=== PATIENT | female | born 1980 | race Caucasian/White ===

== ENCOUNTER → 2017-06-28 | Outpatient (CLI) | payer BC ==
[~2017-06-28] MED LIST: AMIT25 PO; CITA20 PO; ESOM20 PO; Esgic Tablet1 EACH PO; Norco 5-325 Ta1 EACH PO; SUCR1 PO; Zofran Odt4 MG SL
[2017-06-28 09:41] LABS: Specimen Source CERVIX; Test Name VIRCUL
[2017-06-28 10:57] LABS: Candida species (DNA Probe) Positive (NEGATIVE); G. vaginalis (DNA Probe) Negative (NEGATIVE); T. vaginalis (DNA Probe) Negative (NEGATIVE)
[2017-06-29 00:16] LABS: Source Cervix
[2017-06-29 18:18] LABS: HCV Non Reactive (NR)
== END ==
LOC: LAB 09:32
PROVIDERS: Physician Assistant
DX: N72 Inflammatory disease of cervix uteri (principal); N76.0 Acute vaginitis
CPT/HCPCS: 80074; 86592; 87252; 87254; 87389; 87480; 87491; 87510; 87591; 87660

== ENCOUNTER → 2017-07-16 | Outpatient (CLI) | payer BC ==
[2017-07-18 14:10] LABS: HPV Genotype 16 Not Detected (NOTDET); HPV Genotype 18 Not Detected (NOTDET)
[2017-07-24 13:34] LABS: HPV High Risk Other Detected (NOTDET)
== END | disposition home or self-care (01) ==
LOC: LAB SHORT 10:34 → LAB 10:34
PROVIDERS: Obstetrics & Gynecology
DX: Z01.419 Encounter for gynecological examination (general) (routine) without abnormal findings (principal)
CPT/HCPCS: 87624; G0123

== ENCOUNTER → 2017-09-01 | Outpatient (CLI) | payer BC | LOC: PLD 10:52 → LAB SHORT 10:52 | DX: R87.612 Low grade squamous intraepithelial lesion on cytologic smear of cervix (LGSIL) (principal); R87.810 Cervical high risk human papillomavirus (HPV) DNA test positive | CPT/HCPCS: 88305 ==

== ENCOUNTER → 2018-07-29 | Outpatient (CLI) | payer BC ==
[2018-08-04 09:11] LABS: CHLAMYDIA BY NAA Negative (Negative); GONOCOCCUS BY NAA Negative (Negative); HPV 16 Positive (Negative); HPV 18 Positive (Negative); HPV OTHER HR TYPES Positive (Negative); TRICH VAG BY NAA Negative (Negative)
== END | disposition home or self-care (01) ==
LOC: LAB SHORT 14:32 → LAB 14:32
PROVIDERS: Obstetrics & Gynecology
DX: Z01.419 Encounter for gynecological examination (general) (routine) without abnormal findings (principal); Z11.3 Encounter for screening for infections with a predominantly sexual mode of transmission; R87.810 Cervical high risk human papillomavirus (HPV) DNA test positive; R87.612 Low grade squamous intraepithelial lesion on cytologic smear of cervix (LGSIL)
CPT/HCPCS: 87491; 87591; 87624; 87625; 87661; G0123

== ENCOUNTER 2018-08-30 08:01 | Day surgery (SDC) | payer BC ==
[~2018-08-30] VITALS: Ht 162.6 cm; Wt 54.8 kg
--- NOTE | 2018-08-30 17:57 | NUR ---
SHIFT SUMMARY PT AMBULATED TWICE THIS SHIFT AFTER TRANSFER TO FLOOR. MEDICATED PER ORDERS FOR PAIN AND NAUSEA. MULTIPLE VISITORS TO ROOM. SCANT AMOUNT OF DRAINAGE TO MICHELINE PAD. PT PLACED NEW PAD PRIOR TO AMBULATION THIS EVENING. PLEASANT AND COOPERATIVE. CALL LIGHT WITHIN REACH
[2018-08-31 04:53] LABS: BASOPHILS ABSOLUTE AUTO 0.03 K/mm3 (0.00-0.23); BASOPHILS PERCENT AUTO 0 % (0-2); EOSINOPHILS ABSOLUTE AUTO 0.02 K/mm3 (0.00-0.68); EOSINOPHILS PERCENT AUTO 0 % (0-6); Hematocrit 32.2 % (33.0-51.0); Hemoglobin 11.2 g/dL (11.5-16.0); IMMATURE GRAN ABSOLUTE AUTO 0.03 K/mm3 (0.00-0.10); IMMATURE GRAN PERCENT AUTO 0 % (0-1); LYMPHOCYTES ABSOLUTE AUTO 1.89 K/mm3 (0.84-5.20); LYMPHOCYTES PERCENT AUTO 20 % (21-46); MONOCYTES ABSOLUTE AUTO 0.61 K/mm3 (0.16-1.47); MONOCYTES PERCENT AUTO 7 % (4-13); Mean Corpuscular HGB 32.4 pg (26.0-34.0); Mean Corpuscular HGB Conc 34.8 g/dL (31.5-36.5); Mean Corpuscular Volume 93 fL (80-100); Mean Platelet Volume 10.2 fL (9.1-12.4); NEUTROPHILS PERCENT AUTO 73 % (41-73); Platelet Count 164 K/mm3 (150-400); RDW Coefficient Variation 11.9 % (11.7-14.2); RDW Standard Deviation 40.6 fL (35.1-46.3); Red Blood Cell Count 3.46 M/mm3 (3.80-5.20); White Blood Cell Count 9.38 K/mm3 (4.00-11.30)
--- NOTE | 2018-08-31 04:58 | NUR ---
SHIFT SUMMARY PT IS POD 1 FOLLOWING LAPAROSCOPIC ASSISTED VAGINAL HYSTERECTOMY. PT IS INDEPENDENT IN ROOM, AMBULATED IN [place]ICOLE TWICE THIS SHIFT. VSS, 02 SATS >90% ON ROOM AIR. PT DID NOT REPORT NAUSEA THIS SHIFT, MEDICATED FOR PAIN PER ORDERS. MAHAN CATHETER REMOVAL AT 0440 PER ORDERS, PT TOLERATED WELL. WILL CONTINUE TO MONITOR FOR ABILITY TO VOID INDEPENDENTLY. SCANT AMOUNT OF BLEEDING NOTED ON MICHELINE PAD, NEW PAD PLACED BY PT.
[2018-08-31] MEDS ORDERED: Acetaminophen650 M1 PO (09:23)
[2018-08-31] MEDS ORDERED: IBUP800 PO (09:24)
[2018-08-31] MEDS ORDERED: DOCU100 PO (09:24)
[2018-08-31] MEDS ORDERED: ONDA4ODT PO (09:26)
[2018-08-31] MEDS ORDERED: OXYC5 PO (09:30)
--- NOTE | 2018-08-31 12:15 | NUR ---
DISCHARGED REVIEWED DC PAPERWORK; PT VERBALIZED UNDERSTANDING. DC'D IV, CATHETER INTACT. CALLED PRESCRIPTION FOR ZOFRAN AND IBUPROFEN TO [facility] ON [address] PER PT REQUEST. OXYCODONE PRESCRIPTION IN DISCHARGE FOLDER. PT AWAITING RIDE.
--- NOTE | 2018-08-31 12:24 | NUR ---
PT LEFT UNIT BY AMBULATION ACCOMPANIED BY MOTHER. MOTHER HAS POSSESSIONS AND DC PAPERWORK IN HAND.
== END 2018-08-31 12:20 | disposition home or self-care (01) ==
LOC: ORSCMMR 08:01 → ORD 10:00 → SURS 12:42 → ORSCMMR 08-31 12:20
PROVIDERS: Obstetrics & Gynecology
PROC: 0UT7FZZ Resection of Bilateral Fallopian Tubes, Via Natural or Artificial Opening With Percutaneous Endoscopic Assistance (ICD-10-PCS; principal; 2018-08-31)
PROC: 0UT9FZZ Resection of Uterus, Via Natural or Artificial Opening With Percutaneous Endoscopic Assistance (ICD-10-PCS; principal; 2018-08-31)
DX: R87.810 Cervical high risk human papillomavirus (HPV) DNA test positive (principal); R87.612 Low grade squamous intraepithelial lesion on cytologic smear of cervix (LGSIL); N93.0 Postcoital and contact bleeding; N92.0 Excessive and frequent menstruation with regular cycle
CPT/HCPCS: 36415; 84703; 85025; 88307; J0690; J1100; J1885; J2250; J2405; J2704; J2710; J2765; J3010; J7120; Q0163

== ENCOUNTER 2018-09-28 11:03 | Day surgery (SDC) | payer BC ==
[~2018-09-28] VITALS: Ht 162.6 cm; Wt 54.9 kg
[~2018-09-28 11:03] MED LIST changes: +Acetaminophen650 M1 PO; +DOCU100 PO; +IBUP800 PO; +ONDA4ODT PO; +OXYC5 PO
== END 2018-09-28 13:15 | disposition home or self-care (01) ==
LOC: ORSCSDS 11:03
PROVIDERS: Surgery
PROC: 0DB48ZX Excision of Esophagogastric Junction, Via Natural or Artificial Opening Endoscopic, Diagnostic (ICD-10-PCS; principal; 2018-09-28 12:30)
PROC: 0DB68ZX Excision of Stomach, Via Natural or Artificial Opening Endoscopic, Diagnostic (ICD-10-PCS; principal; 2018-09-28 12:30)
DX: K22.70 Barrett's esophagus without dysplasia (principal); K21.9 Gastro-esophageal reflux disease without esophagitis; E78.00 Pure hypercholesterolemia, unspecified; F41.9 Anxiety disorder, unspecified
CPT/HCPCS: 88305; 88342; J0330; J0461; J2405; J2704; J7120

== ENCOUNTER → 2019-02-17 | Outpatient (CLI) | payer BC | END | disposition home or self-care (01) | LOC: PLD 10:41 → LAB SHORT 10:41 | DX: D22.5 Melanocytic nevi of trunk (principal); L98.9 Disorder of the skin and subcutaneous tissue, unspecified | CPT/HCPCS: 88305 ==

== ENCOUNTER → 2019-11-16 | Outpatient (CLI) | payer BC ==
[~2019-11-16] MED LIST changes: +OMEP20ER; +OXYCODONE-ACET1 EAC3 PO
[2019-11-18 16:08] LABS: HPV 16 Positive (Negative); HPV 18 Positive (Negative); HPV OTHER HR TYPES Negative (Negative)
== END | disposition home or self-care (01) ==
LOC: LAB 15:20 → LAB SHORT 15:20
PROVIDERS: Obstetrics & Gynecology
DX: Z01.419 Encounter for gynecological examination (general) (routine) without abnormal findings (principal)
CPT/HCPCS: 87624; 87625; G0123

== ENCOUNTER 2019-12-01 06:24 | Day surgery (SDC) | payer BC ==
[~2019-12-01] VITALS: Ht 162.6 cm; Wt 57.7 kg
[~2019-12-01 06:24] MED LIST changes: -OMEP20ER; -OXYCODONE-ACET1 EAC3 PO
[2019-12-01] MEDS ORDERED: OMEP20ER (06:49)
--- NOTE | 2019-12-01 09:40 | NUR ---
12/01/19 0940 Aida Ramirez NAUSEA RESOLVED AND PAIN NOW 4/10. DISCHARGE INSTRUCTIONS GIVEN. SAYS READY TO GO HOME TO SLEEP. IV DC'D AND DC HOME WITH MOM AND ALL BELONGINGS.
[2019-12-09] MEDS ORDERED: OXYCODONE-ACET1 EAC3 PO (07:44)
== END 2019-12-01 09:26 | disposition home or self-care (01) ==
LOC: ORSCSDS 06:24
PROVIDERS: Otolaryngology
PROC: 0CTPXZZ Resection of Tonsils, External Approach (ICD-10-PCS; principal; 2019-12-01 07:30)
DX: J35.01 Chronic tonsillitis (principal); J35.8 Other chronic diseases of tonsils and adenoids; K22.70 Barrett's esophagus without dysplasia; Z79.899 Other long term (current) drug therapy
CPT/HCPCS: 88304; J0330; J1100; J2250; J2405; J2704; J2765; J3010; J7120

== ENCOUNTER 2020-09-18 13:27 | Day surgery (SDC) | payer BC ==
[~2020-09-18] VITALS: Ht 162.6 cm; Wt 57.9 kg
[~2020-09-18 13:27] MED LIST changes: +OMEP20ER; +OXYCODONE-ACET1 EAC3 PO
== END 2020-09-18 16:06 | disposition home or self-care (01) ==
LOC: ORSCSDS 13:27
PROVIDERS: Surgery
PROC: 0DB48ZX Excision of Esophagogastric Junction, Via Natural or Artificial Opening Endoscopic, Diagnostic (ICD-10-PCS; principal; 2020-09-18 14:45)
PROC: 0DB68ZX Excision of Stomach, Via Natural or Artificial Opening Endoscopic, Diagnostic (ICD-10-PCS; principal; 2020-09-18 14:45)
DX: K22.70 Barrett's esophagus without dysplasia (principal); K21.9 Gastro-esophageal reflux disease without esophagitis; I47.1 Supraventricular tachycardia; K29.70 Gastritis, unspecified, without bleeding; Z79.899 Other long term (current) drug therapy
CPT/HCPCS: 88305; 88342; J2704; J7120

== ENCOUNTER → 2021-10-01 | Outpatient (CLI) | payer BC | END | disposition home or self-care (01) | LOC: PLD 11:09 → LAB SHORT 11:09 | DX: D22.72 Melanocytic nevi of left lower limb, including hip (principal); D22.5 Melanocytic nevi of trunk | CPT/HCPCS: 88305 ==

== ENCOUNTER 2022-08-18 06:52 | Emergency (ER) | payer BC ==
[~2022-08-18] VITALS: Ht 162.6 cm; Wt 56.7 kg
[2022-08-18] MEDS ORDERED: Amitriptyline H10 MG PO (07:21)
[2022-08-18] MEDS ORDERED: RIZATRIPTAN5 MG PO (07:21)
[2022-08-18 08:20] LABS: BASOPHILS ABSOLUTE AUTO 0.05 K/mm3 (0.00-0.23); BASOPHILS PERCENT AUTO 1 % (0-2); EOSINOPHILS ABSOLUTE AUTO 0.04 K/mm3 (0.00-0.68); EOSINOPHILS PERCENT AUTO 1 % (0-6); Hematocrit 40.8 % (33.0-51.0); Hemoglobin 14.5 g/dL (11.5-16.0); IMMATURE GRAN ABSOLUTE AUTO 0.01 K/mm3 (0.00-0.10); IMMATURE GRAN PERCENT AUTO 0 % (0-1); LYMPHOCYTES ABSOLUTE AUTO 1.36 K/mm3 (0.84-5.20); LYMPHOCYTES PERCENT AUTO 28 % (21-46); MONOCYTES ABSOLUTE AUTO 0.32 K/mm3 (0.16-1.47); MONOCYTES PERCENT AUTO 7 % (4-13); Mean Corpuscular HGB 31.5 pg (26.0-34.0); Mean Corpuscular HGB Conc 35.5 g/dL (31.5-36.5); Mean Corpuscular Volume 89 fL (80-100); Mean Platelet Volume 9.6 fL (9.1-12.4); NEUTROPHILS ABSOLUTE AUTO 3.06 K/mm3 (1.96-9.15); NEUTROPHILS PERCENT AUTO 63 % (41-73); Platelet Count 231 K/mm3 (150-400); RDW Coefficient Variation 11.4 % (11.7-14.2); RDW Standard Deviation 36.9 fL (35.1-46.3); Red Blood Cell Count 4.61 M/mm3 (3.80-5.20); White Blood Cell Count 4.84 K/mm3 (4.00-11.30)
[2022-08-18 08:26] LABS: Appearance, Urine Clear (Clear); Bilirubin, Urine Neg (Neg); Blood, Urine Neg (Neg); Color, Urine Yellow (P-Yellow); Glucose Qualitative, Urine Neg (Neg); Ketones, Urine Neg (Neg); Leukocyte Esterase, Urine Neg (Neg); Nitrite, Urine Neg (Neg); Protein, Urine Neg (Neg); Source, Urine Clean Catch; Specific Gravity, Urine 1.015 (1.003-1.022); Urobilinogen, Urine NORM (Normal); pH, Urine 6.5 (5.0-8.0)
[2022-08-18 08:38] LABS: Albumin, Blood 4.4 g/dL (3.4-5.0); Albumin/Globulin Ratio 1.2 (0.8-1.8); Bilirubin, Total 0.5 mg/dL (0.1-1.0); Bun/Creatinine Ratio 17.5 (12.0-20.0); Calcium, Blood 9.5 mg/dL (8.5-10.1); Creatinine, Blood 0.8 mg/dL (0.40-1.00); Globulin, Blood 3.6 g/dL (2.2-4.0); Potassium, Blood 3.8 mmol/L (3.5-5.5)
[2022-08-18 08:53] VITALS: BP 108/92
== END 2022-08-18 09:46 | disposition home or self-care (01) ==
LOC: ER 06:52
PROVIDERS: Student in an Organized Health Care Education/Training Program
DX: R10.13 Epigastric pain (principal); Z79.899 Other long term (current) drug therapy
CPT/HCPCS: 36415; 74177; 80053; 81003; 83690; 85025; J1885; J2405; Q9967

== ENCOUNTER 2023-04-07 09:45 | Emergency (ER) | payer BC ==
[~2023-04-07] VITALS: Ht 162.6 cm; Wt 59.9 kg
[~2023-04-07 09:45] MED LIST changes: +Amitriptyline H10 MG PO; +RIZATRIPTAN5 MG PO
[2023-04-07 10:04] VITALS: BP 125/84
[2023-04-07] MEDS ORDERED: ONDA4ODT MM (11:41)
== END 2023-04-07 11:51 | disposition home or self-care (01) ==
LOC: ER 09:45
DX: G43.909 Migraine, unspecified, not intractable, without status migrainosus (principal); Z79.899 Other long term (current) drug therapy
CPT/HCPCS: 96361; 96374; 96375; 99283-25; J0780; J1200; J1885; J7030

== ENCOUNTER 2024-03-28 09:36 | Day surgery (SDC) | payer BC ==
[~2024-03-28] VITALS: Ht 162.6 cm; Wt 63.8 kg
[~2024-03-28 09:36] MED LIST changes: +Lactated Ringer's 1,000 ML IV ONE; +ONDA4ODT MM
[2024-03-28] MEDS ORDERED: Remifentanil 1 MG Vial ONE (09:57)
[2024-03-28] MEDS ORDERED: propofoL 50 ML IV ONE (09:58)
[2024-03-28] MEDS ORDERED: propofoL 20 ML IV ONE (09:58)
[2024-03-28] MEDS ORDERED: Lactated Ringer's 1,000 ML IV ONE (10:06)
[2024-03-28] MEDS ORDERED: Midazolam HCl 1MG / ML 2ML Vial ONE (10:17)
[2024-03-28] MEDS ORDERED: EPINEPhrine HCl 1 MG / ML 30ML Vial ONE (10:34)
[2024-03-28] MEDS ORDERED: Ropivacaine 0.5% HCL/PF 5 MG/ML 30ML Vial ONE (10:35)
[2024-03-28] MEDS ORDERED: Lidocaine 2%-Epineph 1:100000 20 ML MDV ONE (10:35)
[2024-03-28] MEDS ORDERED: Dexamethasone Sod Phos 10 MG/ML 1ML VIAL ONE (11:03)
[2024-03-28] MEDS ORDERED: Ondansetron HCl 2 MG / ML 2ML Vial ONE (11:03)
[2024-03-28 12:18] VITALS: BP 112/86
== END 2024-03-28 12:15 | disposition home or self-care (01) ==
LOC: ORSCSDS 09:36
PROVIDERS: Otolaryngology
PROC: 0CJS8ZZ Inspection of Larynx, Via Natural or Artificial Opening Endoscopic (ICD-10-PCS; principal; 2024-03-28 10:45)
DX: R49.0 Dysphonia (principal); J38.7 Other diseases of larynx; K21.9 Gastro-esophageal reflux disease without esophagitis; F41.9 Anxiety disorder, unspecified; F32.A Depression, unspecified
CPT/HCPCS: J0171; J1100; J2250; J2405; J2704; J2795; J7120